=== PATIENT | male | born 1940 | race Caucasian/White ===

== ENCOUNTER 2021-06-28 17:34 | Emergency (ER) | payer MEDICARE, OTHER ==
--- NOTE | 2021-06-28 17:49 | EDM.PDOC ---
ED HPI GENERAL MEDICAL PROBLEM - General Chief Complaint: Gastrointestinal Problem Stated Complaint: CONSTIPATED Time Seen by Provider: 06/28/21 17:49 Source of Information: Reports: Patient History Limitations: Reports: No Limitations - History of Present Illness INITIAL COMMENTS - FREE TEXT/NARRATIVE: Moises, 81-year-old male, presents with 2-day history of no bowel movement. States it was somewhat difficult getting it out today and is questioning constipation. States he is usually irregular. Fluctuates with diet and his water intake. [facility] [place] [facility] with limited records available. His provides little input ongoing of his CODE STATUS, advanced directive, or significant medical history other than he recently diagnosed with dementia which has been worsening over the past month. [facility] and is not left home alone as his is sister provides accommodations when nursing staff is not available. States there has been some visual changes which when discussing with the [facility] on the telephone to get fax of his health history stated he had recent diagnosis of age-related macular degeneration and was complaining of symptoms visual changes at that time. He denies chest pain shortness of breath. No exposures to COVID-19 that they are aware of. No other contributory factors. Onset: Today, Gradual Duration: Day(s):, Getting Worse Location: Reports: Abdomen Quality: Reports: Pressure, Same as Previous Episode Improves with: Reports: None Worsens with: Reports: None Associated Symptoms: Reports: No Other Symptoms - Related Data Allergies Allergy/AdvReac Type Severity Reaction Status Date / Time No Known Allergies Allergy Verified 06/28/21 18:05 Home Meds: Home Meds Aspirin [Adult Low Dose Aspirin EC] 81 mg PO DAILY 06/28/21 [History] Cholecalciferol (Vitamin D3) [Vitamin D3] 1,000 unit PO DAILY 06/28/21 [History] Docusate Sodium/Sennosides [Senokot-S] 1 each PO BID 06/28/21 [History] Ferrous Gluconate 324 mg PO BID 06/28/21 [History] Finasteride [Proscar] 5 mg PO DAILY 06/28/21 [History] Gabapentin [Neurontin] 300 mg PO BID 06/28/21 [History] Insulin Glargine,Hum.Rec.Anlog [Lantus Solostar] 38 unit SQ BEDTIME 06/28/21 [History] Levothyroxine 150 mcg PO ACBREAKFAST 06/28/21 [History] Melatonin 3 mg PO BEDTIME 06/28/21 [History] Metoprolol Tartrate [Lopressor] 25 mg PO BID 06/28/21 [History] Multivitamins/Min/FA/Lut/Zeax [ICaps MV] 1 each PO BID 06/28/21 [History] [place]-3 Fatty Acids/Fish Oil [Fish Oil 1,000 mg Capsule] 1 each PO BID 06/28/21 [History] Omeprazole 20 mg PO DAILY 06/28/21 [History] Tamsulosin HCl [Flomax] 0.4 mg PO BEDTIME 06/28/21 [History] Past Medical History HEENT History: Reports: Macular Degeneration Cardiovascular History: Reports: High Cholesterol, Hypertension Respiratory History: Reports: Sleep Apnea Gastrointestinal History: Reports: Colon Polyp ( declines repeat for 2020), GERD, Other (See Below) (erosive gastritis, dysphagia, C-Diff,) Genitourinary History: Reports: BPH, Chronic Renal Insuffiency, Prostate Disorder Musculoskeletal History: Reports: Other (See Below) (charcoat foot) Neurological History: Reports: Neuropathy, Diabetic, Other (See Below) (sleep apnea) Psychiatric History: Reports: Dementia (Jan 26 2021 confirmed diagnosis [facility]) Endocrine/Metabolic History: Reports: Diabetes, Type II, Hypothyroidism, Vitamin D Deficiency, Other (See Below) (papillary thyroid cancer) Hematologic History: Reports: Anemia Oncologic (Cancer) History: Reports: Squamous Cell Carcinoma Dermatologic History: Reports: Other (See Below) (Squamous cell carcinoma, skin lesion that has been increasing in size that he is not pursuing evaluation nor treatment of.) - Past Surgical History Head Surgeries/Procedures: Reports: None HEENT Surgical History: Reports: None Cardiovascular Surgical History: Reports: None Respiratory Surgical History: Reports: None GI Surgical History: Reports: Colonoscopy, EGD, Polypectomy Dermatological Surgical History: Reports: Skin Biopsy Social & Family History - Tobacco Use Tobacco Use Status *Q: Current Every Day Tobacco User ED ROS GENERAL - Review of Systems Review Of Systems: Comprehensive ROS is negative, except as noted in HPI. ED EXAM, GENERAL - Physical Exam Exam: See Below Free Text/Narrative:: Alert, oriented in no acute distress. He visits freely and converses with no difficulty. HEENT is negative discharge or deformity there is skin abnormalities noted none of which are of acute or concern to him. Tacky appearing oral membranes with no erythema or exudate. No rigidity is noted to the neck. Thorax is clear with mildly diminished bases slight rhonchi no wheezes no crackles are appreciated. Cardiac is regular I do not appreciate murmur. Bowel sounds are present no specific tenderness is noted but a pressure sensation in general to the lower abdomen, slightly more left than right. He is able to sit stand from the wheelchair ambulate to the bathroom and also stand for flat and upright abdomen that were obtained. Course - Vital Signs Last Recorded V/S: Last Vital Signs Temp 97.0 F 06/28/21 17:51 Pulse 75 06/28/21 17:51 Resp 18 06/28/21 17:51 BP 149/78 H 06/28/21 17:51 Pulse Ox 94 L 06/28/21 17:51 - Orders/Labs/Meds Labs: Laboratory Tests 06/28/21 06/28/21 Range/Units 18:45 18:45 WBC 8.76 (5.00-10.00) 10^3/uL RBC 4.33 L (4.50-6.00) 10^6/uL Hgb 14.0 (13.0-17.0) g/dL Hct 43.3 (40.0-52.0) % MCV 100.0 H D (82.0-92.0) fL MCH 32.3 H (27.0-31.0) pg MCHC 32.3 (32.0-36.0) g/dL RDW 15.3 H (11.5-14.5) % Plt Count 192 (150-400) 10^3/uL MPV 13.1 H (7.4-10.4) fL Immature Gran % (Auto) 1.1 (0.0-5.0) % Neut % (Auto) 76.9 H (50.0-70.0) % Lymph % (Auto) 10.2 L (20.0-40.0) % [place] % (Auto) 4.9 (2.0-8.0) % Eos % (Auto) 5.9 H (1.0-3.0) % Baso % (Auto) 1.0 (0.0-1.0) % Neut # (Auto) 6.73 (2.50-7.00) 10^3/uL Lymph # (Auto) 0.89 L (1.00-4.00) 10^3/uL [place] # (Auto) 0.43 (0.10-0.80) 10^3/uL Eos # (Auto) 0.52 H (0.10-0.30) 10^3/uL Baso # (Auto) 0.09 (0.00-0.10) 10^3/uL Immature Gran # (Auto) 0.10 (0.00-0.50) 10^3/uL Platelet Estimate Adequate Sodium 139 (136-145) mmol/L Potassium 5.0 (3.5-5.1) mmol/L Chloride 104 (98-107) mmol/L Carbon Dioxide 22.3 (21.0-32.0) mmol/L Anion Gap 17.7 H (5-15) mmol/L BUN 27 H (7-18) mg/dL Creatinine 1.60 H (0.51-1.17) mg/dL Est Cr Clr Drug Dosing 38.57 mL/min Estimated GFR (MDRD) 42 mL/min Glucose 173 H (70-140) mg/dL Calcium 9.0 (8.7-10.3) mg/dL Total Bilirubin 0.5 (0.2-1.0) mg/dL AST 35 (15-37) U/L ALT 23 (14-63) U/L Alkaline Phosphatase 81 (46-116) U/L Total Protein 7.3 (6.4-8.2) g/dL Albumin 3.70 (3.40-5.00) g/dL Departure - Departure Time of Disposition: 19:40 Disposition: Home, Self-Care 01 Condition: Fair Clinical Impression: CKD (chronic kidney disease) stage 3, GFR 30-59 ml/min, Constipation due to slow transit - Discharge Information *PRESCRIPTION DRUG MONITORING PROGRAM REVIEWED*: Not Applicable *COPY OF PRESCRIPTION DRUG MONITORING REPORT IN PATIENT ALEX: Not Applicable Instructions: Constipation, Adult, [id number] Referrals: PCP,Not In Area [Primary Care Provider] - Forms: ED Department Discharge Additional Instructions: Continue all your medications as directed. You need to implement MiraLAX or milk of magnesia into your diet daily. This will help promote easier bowel movements and be overall healthier. [facility] and EGD this year and it states you had declined at that time. That is something you need to consider for reevaluation with your regular clinic provider. Make sure you drink plenty of water which helps improve bowel status as well. Follow-up with your clinic as needed or return to the emergency department outside of clinic hours. Sepsis Event Note (ED) - Focused Exam Vital Signs: Vital Signs Temp Pulse Resp BP Pulse Ox 06/28/21 17:51 97.0 F 75 18 149/78 H 94 L - Problem List & Annotations (1) Constipation due to slow transit SNOMED Code(s): 04370455 Code(s): K59.01 - SLOW TRANSIT CONSTIPATION Status: Acute Current Visit: Yes (2) CKD (chronic kidney disease) stage 3, GFR 30-59 ml/min SNOMED Code(s): 802346134 Code(s): N18.30 - CHRONIC KIDNEY DISEASE, STAGE 3 UNSPECIFIED Status: Acute Current Visit: Yes - Problem List Review Problem List Initiated/Reviewed/Updated: Yes - Assessment/Plan Plan: Continue all your medications as directed. You need to implement MiraLAX or milk of magnesia into your diet daily. This will help promote easier bowel movements and be overall healthier. [facility] you are scheduled for a colonoscopy and EGD this year and it states you had declined at that time. That is something you need to consider for reevaluation with your regular clinic provider. Make sure you drink plenty of water which helps improve bowel status as well. Follow-up with your clinic as needed or return to the emergency department outside of clinic hours.
[2021-06-28 18:05] VITALS: BP 149/78; PULSE 75
[2021-06-28 19:21] LABS: ANION GAP 17.7 mmol/L (5-15)
--- NOTE | 2021-06-28 19:26 | CR ---
[id number] RAD/RAD Abd Flat and Upright 2V EXAM: RAD Abd Flat and Upright 2V INDICATION: CONSTIPATION COMPARISON: None. DISCUSSION: Normal bowel gas pattern without bowel dilation, free air or pneumatosis identified. No pathologic calcifications or osseous abnormality is seen. IMPRESSION: 1. Negative exam. Behzad Hinton MD 06/28/21 0349 Thank you for allowing us to participate in the care of your patient.
== END 2021-06-28 19:59 | disposition home or self-care (01) ==
LOC: KA.ED 17:34
DX: K59.01 Slow transit constipation (principal); I12.9 Hypertensive chronic kidney disease with stage 1 through stage 4 chronic kidney disease, or unspecified chronic kidney disease; E11.22 Type 2 diabetes mellitus with diabetic chronic kidney disease; N18.9 Chronic kidney disease, unspecified; D63.1 Anemia in chronic kidney disease; E03.9 Hypothyroidism, unspecified; K21.9 Gastro-esophageal reflux disease without esophagitis; E78.00 Pure hypercholesterolemia, unspecified; Z79.82 Long term (current) use of aspirin; Z79.899 Other long term (current) drug therapy; Z79.4 Long term (current) use of insulin
CPT/HCPCS: 36415; 74021; 80053; 85025; 99283-25